=== PATIENT | female | born 1955 | race Caucasian/White ===

== ENCOUNTER 2017-06-22 08:42 | Day surgery (SDC) | payer BC ==
--- NOTE | 2017-06-15 12:40 | HP ---
HISTORY AND PHYSICAL: DATE OF ADMISSION/SURGERY: 06/22/17 DATE OF HISTORY AND PHYSICAL: 06/12/17 SURGEON: Dr. Osorio * (DICTATED BY INEZ BLACK, EDITED BY DR. OSORIO) HPI: Alisia is a 61-year-old, right-hand dominant retired female who presents today for followup, who was previously diagnosed with a left rotator cuff tendinitis, presents for follow up after MRI. As a review, the patient on 04/14/2016, over a year ago, fell on the kitchen floor on 04/14/2016 onto her left shoulder and presented for the first time in clinic on 02/20/2017. The pain has continued to worsen. She has previously had a subacromial cortisone injection. She has done physical therapy and taken Tylenol and Motrin for pain. She is very active in Jazzercise class and has stopped doing her classes as well as lifting weights in the class. Her pain has begun to awaken her at night. Today we reviewed she describes her pain as in about the lateral shoulder and upper arm, as well as the posterior shoulder. No numbness and tingling and no other joint pain. She denies a history of problems with anesthesia. She endorses being able to walk a city block or a flight of stairs with no problems. She denies any history of DVT or PE, as well as no known family history of the same. PAST MEDICAL HISTORY: Significant for asthma and Abreu's esophagitis. Her last endoscopy was in 2015 and was okay. Hypertension which she has treated previously with exercise, and essential tremor. Past medical history is also significant for breast cysts, and an overactive bladder. PAST SURGICAL HISTORY: Significant for bilateral mastectomy. CURRENT MEDICATIONS: Mirtazapine 7.5 mg every night at bedtime, famotidine 20 mg p.r.n., Advair Diskus 150 mcg per dose twice daily as needed, aspirin 81 mg, fish oil 1000 mg daily, calcium 1000 + D daily, folic acid 800 mcg daily, a multivitamin daily, [facility] melatonin 3 mg as needed for sleep, cranberry 400 mg twice daily, and a B12 supplement, 1000 mcg, as well as a B vitamin supplement. ALLERGIES: Include sulfa antibiotics, codeine, and pain medications, which give her nausea. FAMILY HISTORY: Mother and father with lung disease. SOCIAL HISTORY: She denies a history of tobacco use, alcohol use, and illicit drugs. ROS: Significant for urinary frequency, an enlarged lymph node on her left side , mild depression. Otherwise a 14-point review of systems is negative. Physical Exam: VITAL SIGNS: Height 64 inches, weight 143 pounds. Pulse 79, respirations 15, temperature 97.2, blood pressure 130/82. Pain level 1. BMI 24.5. GENERAL: She is a well-developed, well-nourished, 61-year-old female in no acute distress. Alert and oriented x3. No gross neurologic deficiencies. Ambulating without a limp. HEENT: Normocephalic, atraumatic. Pupils equally round and reactive to light. Extraocular movements intact. NECK: Supple. No palpable fullness of her left post cervical neck. No tenderness to touch. Thyroid is smooth and nontender. CARDIAC: Regular rate and rhythm with no murmurs, rubs, or gallops. No pedal edema. Radial pulses 2+ bilaterally. PULMONARY: Lungs are clear to auscultation bilaterally with no wheezes, rales, or rhonchi. ABDOMEN: Soft and nontender. MUSCULOSKELETAL: LEFT UPPER EXTREMITY: Left shoulder exam shows no soft tissue swelling or bruising. Skin is intact. Passive range of motion is 180 degrees of forward flexion, 90 degrees of external, and 85 degrees of internal rotation. Negative Neer's. Positive mild Petit. Positive supraspinatus pain with stress testing. No other pain or weakness with rotator cuff stress testing. No AC joint or proximal biceps tenderness to palpation. No pain with Speeds or O' Lorenzo's testing. Neurovascularly intact distally. STUDIES: We rereviewed 4 xray views of the left shoulder from February 20, 2017 which demonstrate AC joint narrowing and some inferior curve to the anterior aspect of the acromion. MRI from 2016 was reviewed and demonstrates a small width high grade intrasubstance tear, best visible in series 10 image 9. Also AC joint degenerative changes and lateral acromial spur. IMPRESSION: 1. Left shoulder rotator cuff tear, supraspinatus, intrasubstance. 2. 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 PLAN: 1. To the OR for left shoulder arthroscopic subacromial decompression, excision of her distal clavicle, evaluation and treatment of rotator cuff, supraspinatus, and evaluation and treatment of biceps (release) on 06/22/2017. 2. She will follow up 10-14 days postop for followup and suture removal. Pain medications will be prescribed on the date of her surgery. 3. We discussed risks and potential complications including bleeding, infection , nerve or blood vessel injury, shoulder pain, stiffness, osteoarthritis, hardware complications, rotator cuff retear, blood clot. INEZ BLACK EDITED BY DR. OSORIO [id number]/[facility] #: [id number] RIGO
[~2017-06-22 08:42] MED LIST: Buffered Lidocaine 0.9% SYRIN* 5 ML/SYR SYRINGE INTRADERM ONE; Dexamethasone IV* 4 MG/ML 1 ML (4 MG) IV SLOW PU ONE; Famotidine IV* 10 MG/ML 2 ML (20 mg) IV ONE
[2017-06-22] MEDS ORDERED: Buffered Lidocaine 0.9% SYRIN* 5 ML/SYR SYRINGE ONE (09:21)
[2017-06-22] MEDS ORDERED: ceFAZolin 2 GM PREMIX (*) 2 GM/50 ML BAG IVPB ONE (09:21)
[2017-06-22] MEDS ORDERED: Dexamethasone IV* 4 MG/ML 1 ML (4 MG) ONE (09:21)
[2017-06-22] MEDS ORDERED: Famotidine IV* 10 MG/ML 2 ML (20 mg) ONE (09:21)
[2017-06-22] MEDS ORDERED: Ketorolac INJ* 30 MG/ML 1 ML VIAL ONE (09:51)
[2017-06-22] MEDS ORDERED: fentaNYL* 50 MCG/ML 2 ML VIAL (100 MCG VIAL) ONE (09:51)
[2017-06-22] MEDS ORDERED: Ondansetron INJ* 2 MG/ML VIAL ONE (09:51)
[2017-06-22] MEDS ORDERED: Propofol* 10 MG/ML 20 ML BTL IV PUSH ONE (09:51)
[2017-06-22] MEDS ORDERED: Atracurium* 10 MG/ML 10 ML VIAL ONE (09:51)
[2017-06-22] MEDS ORDERED: Midazolam* 1 MG/ML 10 ML VIAL (10 MG) ONE (09:51)
[2017-06-22] MEDS ORDERED: EPINEPHrine AMP 1 MG/ML ONE ×2 (10:24→10:26)
[2017-06-22] MEDS ORDERED: ROPIVACAINE 5 MG/ML 30 ML BTL (0.5%) ONE (10:45)
[2017-06-22] MEDS ORDERED: Glycopyrrolate IV* 0.2 MG/ML 1 ML VIAL ONE (11:32)
[2017-06-22] MEDS ORDERED: DiMENhydriNATE IV* 50 MG/ML VIAL IV PUSH PRN (12:04)
[2017-06-22] MEDS ORDERED: Ondansetron INJ* 2 MG/ML VIAL IV PRN (12:04)
[2017-06-22] MEDS ORDERED: oxyCODONE/Acetamin 5/325 MG* TAB PO PRN (12:04)
[2017-06-22] MEDS ORDERED: fentaNYL* 50 MCG/ML 2 ML VIAL (100 MCG VIAL) IV PRN (12:04)
[2017-06-22 14:27] VITALS: BP 128/78
--- NOTE | 2017-06-24 04:20 | OP ---
OPERATIVE REPORT: DATE OF OPERATION: 06/22/17 DATE OF : 53 SURGEON: Jesus Streeter MD FROZEN YOGURT MAKER: INEZ Torres A physician interior design assistant was required for the length of the procedure for positioning and instrumentatio n assistance. ANESTHESIOLOGIST: Dr. Milan Shaikh. ANESTHESIA: General anesthesia, regional interscalene block anesthesia. PRE-OP DIAGNOSES: 1. Left shoulder rotator cuff tear, supraspinatus, intrasubstance. 2. Left shoulder acromioclavicular joint arthritis and subacromial impingement, subacromial bursitis . POST-OP DIAGNOSES: 1. Left shoulder rotator cuff tear, low grade, undersurface, supraspinatus. 2. Left shoulder acromioclavicular joint arthritis. 3. Left shoulder subacromial impingement and significant bursitis subacromial. 4. Left shoulder minimal fraying about the superior labrum. OPERATIVE PROCEDURES: 1. Left shoulder arthroscopic debridement rotator cuff tear, low grade, undersurface. 2. Left shoulder subacromial decompression, arthroscopic. 3. Left shoulder arthroscopic distal clavicle resection. 4. Left shoulder debridement as well of superior labrum and subacromial bursitis. ANTIBIOTICS: Ancef 2 g IV. IV FLUIDS: 1200 cc crystalloid. COMPLICATIONS: None. SPECIMEN: None. INSTRUMENTATION: None. ESTIMATED BLOOD LOSS: Minimal. INDICATIONS FOR PROCEDURE: The patient is a 61-year-old woman, right hand dominant, retired woman, w ho fell on 04/14/16 on to her left shoulder and has had pain ever since. She presented to my clinic for the first time in 02/20/17. As detailed in history and physical and prior clinic notes, the violeta ent responded insufficiently to nonoperative management including a subacromial cortisone injection, physical therapy, Tylenol and Motrin. I discussed with the patient risks and potential complications of surgery including bleeding, infecti on, nerve or blood vessel injury, shoulder pain, stiffness, osteoarthritis, hardware complications, r otator cuff retear, blood clot. DESCRIPTION OF PROCEDURE: Preoperatively, a written consent was obtained in preop holding. Operativ e extremity was marked in the preoperative holding. The patient had a regional interscalene nerve bl ock by Dr. Shaikh in the preoperative holding. The patient was taken back to the operating room an d placed supine on the operating room table. The patient was sedated and intubated. The patient was transferred in the lateral decubitus position with the left side up. Bony prominences were padded, axillary roll, beanbag insufflated. Left shoulder placed in the appropriate position of traction, fo rward flexion and abduction with 10 pounds of traction, less than I usually used because of the patie nt's slim size. The left shoulder was prepped with ChloraPrep and then draped. Surgical time-out was performed. The left shoulder was entered with a spinal needle from posterior and 25 cc of normal sa line were used to insufflate the glenohumeral joint. I made a posterior glenohumeral joint portal. I started my diagnostic arthroscopy. No articular cartilage lesions. No loose body in the axillary recess. I noticed some bhavesh, minimal of some tissue about the more mid or posterior aspect of the s upraspinatus tendon. None more anteriorly where I had seen intrasubstance change on MRI preoperative ly. I established an anterior glenohumeral joint portal under direct visualization. I visualized th e subscapularis in multiple positions of the humeral head and confirmed no tear. There is some minim al fraying about the biceps anchor and superior labrum. I used an arthroscopic shaver to just debrid e that fraying. There was no unstable superior labral tear. There was no significant degeneration o f the biceps anchor and proximal biceps tendon. The fraying was more cosmetic, it seemed prior to my shaving. I shaved just a little bit the frayed tissue about the undersurface of the supraspinatus t o allow better visualization. I used a spinal needle from outside the shoulder to sangeeta that spot. Th e rotator cuff tendon felt robust to the spinal needle touch. I had considered cutting the biceps tendon, but because it appeared so stable as mentioned above, I d id not cut and reattach the biceps tendon. I took all fluids and instruments from the glenohumeral joint and moved to the subacromial space. I entered the subacromial space from posterior and anterior. I used a 7-mm Mitek plastic cannula and positioned anteriorly. I established a lateral subacromial portal under direct visualization. Of note, there was significant bursitic tissue throughout the subacromial space. This made entering t he subacromial space take several minutes more than it would normally, but it was still routine. Onc e the lateral subacromial portal was established, I used an arthroscopic shaver to debride a signific ant amount of bursitic tissue both superior to the rotator cuff and in the gutters. I was methodical about this and removed a significant amount of bursitic tissue. I established a posterolateral portal to better visualize the area of rotator cuff tendon tissue that had been marked. There was no other tear visible about the bursal side of the rotator cuff tendon. I used an arthroscopic probe to probe about the spinal needle. The rotator cuff tendon tissue in th is area did not seen particularly damaged. I was able to force the probe into some tissue but it did not go all the way through the tendon. This was just one focal spot where I believe the spinal need le had entered and did not represent a tear. I wanted to make sure that I was not under appreciating a partial thickness tear in the tendon. Ther karinaore, before making my final decision, I actually returned the arthroscope to the glenohumeral joint and visualized again the affected tissue. I visualizing and probing the rotator cuff tendon in this location from both the under and over surfa ce, I decided that there was no significant tear or disease of tissue in this location. Therefore, I thought that it made sense not to take the tendon down and repair it. I felt that the significant b ursitis in this patient's subacromial space was most likely to be the cause of her significant pain. I then turned my attention to the patient's acromion and it pronounced inferior hook to the anterior aspect of the acromion. I debrided at least 6 if not 8 mm of that hook. I then addressed the AC joint. There was significant bursitic tissue about it. I removed this with an arthroscopic shaver and with a vapor electrocautery. I then removed 8 mm at the distal end of the clavicle with an arthroscopic juancho. I then visualized again the area of tissue that I had examined over and it still worked singh. I removed instruments and fluid from subacromial space. I closed the skin incisions with [id number] and 12 stitches using nylon 4.0 suture. Xeroform, 4 x4s, ABDs, foam tape. Sling without abduction pillow. DISPOSITION: The patient was transferred home when medically stable. The patient was to start aspir in for 2 weeks postoperatively for DVT prophylaxis and Percocet as needed. The patient will stay in the sling as long as needed and will start physical therapy immediately at the start of next week. [id number]/[facility] #: [id number]
== END 2017-06-22 15:40 | disposition home or self-care (01) ==
LOC: OR 08:42
PROVIDERS: ATTEND Orthopaedic Surgery
DX: S46.012A Strain of muscle(s) and tendon(s) of the rotator cuff of left shoulder, initial encounter (principal); M75.42 Impingement syndrome of left shoulder; M13.812 Other specified arthritis, left shoulder; M24.112 Other articular cartilage disorders, left shoulder; W19.XXXA Unspecified fall, initial encounter; Y92.000 Kitchen of unspecified non-institutional (private) residence as the place of occurrence of the external cause; J45.909 Unspecified asthma, uncomplicated; K22.70 Barrett's esophagus without dysplasia; I10 Essential (primary) hypertension; G25.0 Essential tremor
CPT/HCPCS: J0171; J0690; J1100; J1885; J2250; J2405; J2704; J2795; J3010